=== PATIENT | male | born 1965 | race Caucasian/White ===

== ENCOUNTER 2016-08-11 13:58 | Emergency (ER) | payer OTHER ==
[2016-08-11 14:05] VITALS: BP 121/73; PULSE 94; TEMP 98.4; BMI 25.6
[2016-08-11] MEDS ORDERED: SULFAMETHOXAZOLE/TRIMETHOPRIM 800MG/160MG D.S. TABLET PO ONE (15:01)
--- NOTE | 2016-08-11 15:02 | PDOC ---
[id number]: PAIN Time Seen by Provider: 08/11/16 14:44 History Source: Patient Exam Limitations: No Limitations - History of Present Illness Initial Comments: 08/11/16 14:58 Your with complaints of lesion to lower abdominal wall. States was uncertain as if was a insect bite a few days ago but has progressively become more swollen, tender where today woke up with redness and scabbed lesion. Denies fever or other areas of injury. Has had no issue with abscesses or lesions in the past. Timing/Duration: reports: getting worse Severity: Yes: moderate Location: reports: torso Respiratory Risk Factors: reports: no cause identified Associated Symptoms: reports: denies symptoms Past History - Travel Traveled outside of the country in the last 30 days: No Close contact w/someone who was outside of country & ill: No - Past Medical History Allergies/Adverse Reactions: Allergies Allergy/AdvReac Type Severity Reaction Status Date / Time No Known Allergies Allergy Verified 08/11/16 14:01 Home Medications: Ambulatory Orders Losartan Potassium 50 mg PO DAILY 08/11/16 Metoprolol Tartrate 100 mg PO DAILY 08/11/16 Spironolactone [Aldactone] 25 mg PO DAILY 08/11/16 Sulfamethoxazole/Trimethoprim [Bactrim *Ds*] 1 each PO BID #14 tablet 08/11/16 Cardiac Disorders: Yes (ARRYTHMIAS.) Other medical history: CHRONIC BACK PAIN. - Psycho/Social/Smoking Cessation Hx Anxiety: No Suicidal Ideation: No Smoking History: Never smoked Hx Alcohol Use: No Drug/Substance Use Hx: No Substance Use Type: None Review of Systems - Review of Systems Able to Perform ROS?: Yes Is the patient limited Indonesian proficient: Yes Constitutional: Yes: Symptoms Reported, See HPI, Malaise. No: Fever HEENTM: No: Symptoms Reported Respiratory: No: Symptoms reported Integumentary: Yes: Symptoms Reported, See HPI, Erythema, Lesions Neurological: No: Symptoms reported All Other Systems: Reviewed and Negative *Physical Exam - Vital Signs Last Vital Signs Temp Pulse Resp BP Pulse Ox 98.4 F 94 H 18 121/73 98 08/11/16 14:01 08/11/16 14:01 08/11/16 14:01 08/11/16 14:01 08/11/16 14:01 - Physical Exam General Appearance: Yes: Nourished, Appropriately Dressed, Apparent Distress, Mild Distress, Moderate Distress HEENT: positive: LULÚ, Normal ENT Inspection, TMs Normal, Pharynx Normal Neck: positive: Supple. negative: Tender, Lymphadenopathy (R), Lymphadenopathy (L) Respiratory/Chest: positive: Lungs Clear, Normal Breath Sounds Gastrointestinal/Abdominal: positive: Soft, Other (lesion approximately 2 cm with induration and tenderness approximately 5 cm with erythema circumferentially. midpoint scabbed very tender lesion and fluctuant.) Extremity: positive: Normal Capillary Refill, Normal Inspection Integumentary: positive: Erythema Neurologic: positive: it auditor II-XII NML intact, Fully Oriented, Alert, Normal Mood/ Affect, Normal Response, Motor Strength 5/5 Procedures - Incision and Drainage I&D Site: Bilateral: Abdomen (midpoint suprapubic below umbilicus) Progress Note - Progress Note Progress Note: Abscess to lower abdomen, incised and drained, packed and culture sent. Started on Bactrim *DC/Admit/Observation/Transfer Diagnosis at time of Disposition: Abdominal abscess - Discharge Dispostion Disposition: HOME Condition at time of disposition: Stable Admit: No - Prescriptions Prescriptions: Sulfamethoxazole/Trimethoprim [Bactrim *Ds*] 1 each PO BID #14 tablet - Referrals Referrals: Joel Frank [Primary Care Provider] - - Patient Instructions Printed Discharge Instructions: DI for Skin Abscess Additional Instructions: Rest, keep area elevated. Avoid strenuous activity or exercise until wound is healed Use hot soaks to area to bring more blood to the surface and encourage drainage May change dressings as needed to keep clean - trying to avoid removal of packing for 2 days. If packing needs to be changed, return to emergency department or with your followup physician for wound care and evaluation and repacking as needed If packing needs to be removed, then in 2 days, while in the shower remove dressing and quickly pull the packing taken out. Allow water from shower to wash area thoroughly for 2-3 minutes, and pat dry upon exit of shower and replace dressing. Change his dressing daily until the wound is completely healed. May use Tylenol or Motrin for mild pain relief Use stronger medications as directed and prescribed Continue all medications as prescribed Followup with private physician in 2-3 days for wound check Return to emergency Department for worsening swelling, pain, redness, fevers as needed - Post Discharge Activity Work/School Note: Back to Work
[2016-08-11] MEDS ORDERED: SULFAMETHOXAZOLE/TRIMETHOPRIM 800MG/160MG D.S. TABLET ONE (15:20)
== END 2016-08-11 15:30 | disposition home or self-care (01) ==
LOC: JERFT 13:58 → SUPCPDRO 13:58 → JERFT 15:30
PROC: 0J980ZZ Drainage of Abdomen Subcutaneous Tissue and Fascia, Open Approach (ICD-10-PCS; principal; 2016-08-11)
DX: L02.211 Cutaneous abscess of abdominal wall (principal); I10 Essential (primary) hypertension
CPT/HCPCS: 87070; 87186; 87205; 99282-25